=== PATIENT | female | born 1970 | race Caucasian/White ===

== ENCOUNTER 2017-08-06 07:51 | Day surgery (SDC) | payer OTHER ==
[2017-07-30 07:41] VITALS: BMI 41.8
[2017-08-06] MEDS ORDERED: Propofol 10 mg/ml Inj (20 ML) ONE (14:10)
[2017-08-06] MEDS ORDERED: Midazolam 2 MG/2 ML VIAL ONE (14:10)
[2017-08-06] MEDS ORDERED: HYDROmorphone 0.5 mg/0.5 ml ISec IVP PRN (15:29)
--- NOTE | 2017-08-06 15:59 | PCM.SURG1 ---
Surgeon's Initial Post Op Note - Surgeon's Notes Surgeon: Marina Segovia MD Dock Associate: none Type of Anesthesia: General LMA Pre-Operative Diagnosis: Abnormal uterine bleeding, fibroids Operative Findings: Enlarged uteus 13 weeks, bilaterl ostia visulzed iwth thickened white proliferiative endometrium noted within cavity, enodmetiral ablatin novarsure lenght 6.5cm, widght 4.4 cm cavity assessemtn passed, 30 seconds adn then machine aborted procedure. education courses sales representative called maybe related to machine. hystersocope reintroducted wiht ablation of cavity Post-Operative Diagnosis: same as above Operation Performed: Operative hysteroscpy, nedometiral ablation, novasure, dilationa and currettage Specimen/Specimens Removed: endocervical currettigns, endoemtrial currettningd Estimated Blood Loss: EBL {In ML}: 10 Blood Products Given: N/A Drains Used: No Drains Post-Op Condition: Good Date of Surgery/Procedure: 08/06/17 Time of Surgery/Procedure: 15:00
[2017-08-06 16:18] VITALS: O2SAT 100
[2017-08-06 17:08] VITALS: BP 123/70; PULSE 67; RESP 18; TEMP 98
--- NOTE | 2017-08-08 07:23 | OP ---
PROCEDURE DATE: 08/06/2017 SURGEON: Marina Segovia MD MANUFACTURING AREA MANAGER: None. TYPE OF ANESTHESIA: General LMA. PREOPERATIVE DIAGNOSIS: Abnormal uterine bleeding, fibroids. POSTOPERATIVE DIAGNOSES: Abnormal uterine bleeding, fibroids. OPERATIVE FINDINGS: Enlarged uterus, 13 weeks bilateral ostia visualized with thick and white proliferative endometrium noted within the cavity, endometrial ablation, NovaSure length 6.5 cm with 4.4 cavity 30 seconds and the machine aborted procedure spontaneously, artist's representative called, procedure re-attempted; however, same noted. Procedure may be related to machine. Hysteroscope reentered with ablation of the cavity. OPERATION PERFORMED: Operative hysteroscope, endometrial ablation, NovaSure, dilatation and curettage. SPECIMEN REMOVED: Endocervical curettings, endometrial cuttings, ESTIMATED BLOOD LOSS: 10 mL. BLOOD PRODUCTS: None. COMPLICATIONS: None. DESCRIPTION OF PROCEDURE: The patient was taken to the operating room where she was given general anesthesia. Once found to be adequate, she was placed on the operating table in the dorsal supine position with legs supported using stirrups. The patient was then prepped and draped in the usual sterile fashion. A time-out confirmed correct patient and correct procedure. Bimanual exam was performed on the above mentioned findings. A red rubber catheter was inserted into the urethra to drain the bladder. A Lomeli retractor was placed in the anterior and posterior fornix of vagina. Cervix was adequately visualized. Single tooth tenaculum was placed on the anterior lip of the cervix. Endocervical curettings were obtained with Kevorkian curette and sent to pathology on [facility]. The uterus was then sounded to 13 cm. Cervix was sequentially dilated to allow for introduction of hysteroscope under direct visualization using normal saline as the distention media. The hysteroscope was then removed and a gentle curettage was done. Following this, the NovaSure device was then inserted as per the manufacture's instructions with the cervical length being measured and the uterine sound. The uterine length was noted to be 6.5 cm in which that was adjusted on the NovaSure device. The instruments can be deployed from the catheter and withheld. The NovaSure device was then inserted within the sheath, and then the testing and then the width was then obtained in the usual manner appropriate . The device was blocked at the fundus, and the cavity and specimen were then started. The cavity and the specimen was then passed and the was suctioned and the endometrial ablation went on for 30 seconds and spontaneously terminated. The NovaSure artist's representative called and gave us clear instructions on what to do again. Careful instructions were followed and the similar procedures have been noted. The NovaSure device was then carefully removed, not being deployed, but within the sheath and removed carefully from the uterus. Following this, the endoscope was being reintroduced and the endometrial cavity was noted to be ablated. All instruments were removed. There was good hemostasis at the tenaculum. At the end of the procedure, all needle, sponge and instrument counts were noted and correct x2. The patient tolerated the procedure well and was transferred to the recovery room in stable condition. Marina Segovia MD
== END 2017-08-06 17:11 | disposition home or self-care (01) ==
LOC: C.SDS 07:51
PROVIDERS: ATTEND Obstetrics & Gynecology
DX: N93.9 Abnormal uterine and vaginal bleeding, unspecified (principal); D25.9 Leiomyoma of uterus, unspecified
CPT/HCPCS: 58563; J1100; J1170; J2250; J2405; J2704; J3010